=== PATIENT | female | born 1965 | race Caucasian/White ===

== ENCOUNTER 2021-04-20 04:33 | Day surgery (SDC) | payer OTHER ==
[2021-04-18 15:24] VITALS: BMI 24.1
[2021-04-20] MEDS ORDERED: PROPOFOL 20 ML ONE ×2 (07:50→08:48)
[2021-04-20] MEDS ORDERED: MIDAZOLAM HCL 2 MG/2 ML SINGLE DOSE VIAL ONE ×2 (07:50)
[2021-04-20] MEDS ORDERED: oxyCODONE HCL 5 MG TABLET PO PRN (08:04)
[2021-04-20] MEDS ORDERED: ONDANSETRON 4 MG/2 ML VIAL IVPUSH PRN (08:04)
[2021-04-20] MEDS ORDERED: IBUPROFEN 400 MG TABLET (FP) PO PRN (08:09)
[2021-04-20] MEDS ORDERED: ACETAMINOPHEN 325 MG TABLET (FP) PO PRN (08:09)
[2021-04-20] MEDS ORDERED: LACTATED RINGERS SOLUTION 1,000 ML IV SCH (08:15)
[2021-04-20] MEDS ORDERED: SEVOFLURANE 250 ML BTL ONE (09:15)
[2021-04-20 11:58] VITALS: PULSE 60
[2021-04-20 15:58] VITALS: BP 120/60; TEMP 97.9
== END 2021-04-20 15:00 | disposition home or self-care (01) ==
LOC: JASU-SURG 04:33
PROVIDERS: ATTEND Obstetrics & Gynecology
PROC: 0UB98ZZ Excision of Uterus, Via Natural or Artificial Opening Endoscopic (ICD-10-PCS; principal; 2021-04-20 07:30)
PROC: 0UDB8ZX Extraction of Endometrium, Via Natural or Artificial Opening Endoscopic, Diagnostic (ICD-10-PCS; 2021-04-20 07:30)
DX: N95.0 Postmenopausal bleeding (principal); D25.0 Submucous leiomyoma of uterus
CPT/HCPCS: 86850; 86900; 86901; 88305-TC; 94760; C9803; U0003; U0005